=== PATIENT | female | born 1995 | race American Indian/Alaskan Native ===

== ENCOUNTER 2019-07-07 19:02 | Outpatient (CLI) | payer OTHER ==
[2019-07-07 20:56] VITALS: BP 133/65
--- NOTE | 2019-07-07 21:08 | Ultrasound Report ---
US OB BPP wo non-stress, US OB limited INDICATION / CLINICAL INFORMATION: c/o decreased fm. COMPARISON: None available. FINDINGS: Single, viable intrauterine in cephalic presentation. heart rate 144. Amniotic fluid volume is within normal limits, with a fluid index of 11.1 cm. Placenta is anterior and free of the cervical os. Biophysical profile breathing movement: 2 movement: 2 posture and tone: 2 Amniotic fluid volume: 2 Total score for biophysical profile: 8/8 IMPRESSION: 1. Single, viable intrauterine . Amniotic fluid volume is normal. 2. Biophysical profile is normal. Signer Name: Phill Stone MD Signed: 07/07/2019 9:03 PM Workstation Name: [id number]
== END 2019-07-07 21:03 | disposition home or self-care (01) ==
LOC: TRG 19:02
PROVIDERS: ATTEND Obstetrics & Gynecology
DX: O99.343 Other mental disorders complicating pregnancy, third trimester (principal); O47.1 False labor at or after 37 completed weeks of gestation; Z3A.39 39 weeks gestation of pregnancy
CPT/HCPCS: 59025; 76815; 76819